=== PATIENT | female | born 1940 | race Caucasian/White ===

== ENCOUNTER 2023-09-13 11:29 | Day surgery (SDC) | payer MEDICARE, OTHER ==
[2023-09-13] MEDS ORDERED: Decadron 4 MG INJ IV ONE (11:30)
[2023-09-13] MEDS ORDERED: LIDOCAINE HCL 2% 100 MG/5 ML IJ ONE (11:30)
[2023-09-13] MEDS ORDERED: DIPRIVAN 200 MG/20 ML IV ONE (14:15)
[2023-09-13] MEDS ORDERED: Lactated Ringers 1,000 ML IV ONE (14:51)
--- NOTE | 2023-09-13 15:01 | XRAY ---
Indication: Left C2-C4 MBB. Intraoperative fluoroscopy provided for 15 seconds. 3 digital spot image submitted for interpretation demonstrates posterior needle tips projecting over expected left C2-C4 nerve roots. Correlate with intraoperative findings/report.
--- NOTE | 2023-09-13 15:08 | XRAY ---
15 seconds of fluoroscopy was used in surgery for a left C2-C4 MBB.
== END 2023-09-13 14:55 | disposition home or self-care (01) ==
LOC: SDC-PAIN 11:29
PROVIDERS: ATTEND Psychiatry & Neurology Pain Medicine
DX: M47.812 Spondylosis without myelopathy or radiculopathy, cervical region (principal)
CPT/HCPCS: 64490; 64491; 72040; 77002; J1100; J2704

== ENCOUNTER 2023-12-13 08:58 | Day surgery (SDC) | payer MEDICARE, OTHER ==
[2023-12-13] MEDS ORDERED: BUPIVACAINE 0.5% VIAL IJ ONE (08:59)
[2023-12-13] MEDS ORDERED: Decadron 4 MG INJ IV ONE (08:59)
[2023-12-13] MEDS ORDERED: Lactated Ringers 1,000 ML IV ONE (11:17)
[2023-12-13] MEDS ORDERED: DIPRIVAN 200 MG/20 ML IV ONE (11:28)
--- NOTE | 2023-12-13 13:16 | XRAY ---
Indication: Left C2-C4 MBB. Intraoperative fluoroscopy provided for 10 seconds. 2 digital spot images submitted for interpretation demonstrates posterior needle tips projecting over the expected left C2-C4 nerve roots. Correlate with intraoperative findings/report.
--- NOTE | 2023-12-13 13:24 | XRAY ---
10 seconds of fluoroscopy was used in surgery for a left C2-C4 MBB.
== END 2023-12-13 12:00 | disposition home or self-care (01) ==
LOC: SDC-PAIN 08:58
PROVIDERS: ATTEND Psychiatry & Neurology Pain Medicine
DX: M47.812 Spondylosis without myelopathy or radiculopathy, cervical region (principal)
CPT/HCPCS: 64490; 64491; 72040; 77002; J1100; J2704

== ENCOUNTER 2023-12-27 09:26 | Day surgery (SDC) | payer MEDICARE, OTHER ==
[2023-12-27] MEDS ORDERED: DIPRIVAN 200 MG/20 ML IV ONE (13:06)
[2023-12-27] MEDS ORDERED: Lactated Ringers 1,000 ML IV ONE (15:29)
--- NOTE | 2023-12-27 15:29 | XRAY ---
Indication: Left C2-C4 RFA. Intraoperative fluoroscopy provided for 21 seconds. 2 digital spot image submitted for interpretation demonstrates posterior needle tips projecting over the expected left C2-C4 nerve roots. Correlate with intraoperative findings/report.
--- NOTE | 2023-12-27 16:51 | XRAY ---
21 seconds of fluoroscopy was used in surgery for a left C2-C4 RFA.
== END 2023-12-27 13:55 | disposition home or self-care (01) ==
LOC: SDC-PAIN 09:26
PROVIDERS: ATTEND Psychiatry & Neurology Pain Medicine
DX: M47.812 Spondylosis without myelopathy or radiculopathy, cervical region (principal)
CPT/HCPCS: 64633; 64634; 72040; 77002; J2704

== ENCOUNTER 2024-10-02 15:22 | Day surgery (SDC) | payer MEDICARE, OTHER ==
[2024-10-02] MEDS ORDERED: BUPIVACAINE 0.5% VIAL IJ ONE (15:23)
[2024-10-02] MEDS ORDERED: LIDOCAINE HCL 1% AMPUL 5 ML IJ ONE (15:23)
[2024-10-02] MEDS ORDERED: Depo-Medrol 40 MG/ML IM ONE (15:23)
--- NOTE | 2024-10-02 20:48 | XRAY ---
Indication: Left knee injection. Intraoperative fluoroscopy provided for 6 seconds. Single digital spot image submitted for interpretation demonstrates needle tip projecting over left femur intercondylar notch. Small amount of contrast injected for needle tip placement. Correlate with intraoperative findings/report.
--- NOTE | 2024-10-03 19:25 | XRAY ---
6 seconds of fluoroscopy was used in surgery for a left intra-articular knee injection.
== END 2024-10-02 19:02 | disposition home or self-care (01) ==
LOC: SDC-PAIN 15:22
PROVIDERS: ATTEND Psychiatry & Neurology Pain Medicine
DX: M17.12 Unilateral primary osteoarthritis, left knee (principal)
CPT/HCPCS: 20610; 73560; 77002; Q9966